=== PATIENT | male | born 1940 | race Caucasian/White ===

== ENCOUNTER → 2017-08-07 | Outpatient (CLI) | payer OTHER | END | disposition home or self-care (01) | LOC: RAH 12:43 | PROVIDERS: ATTEND Internal Medicine Cardiovascular Disease | DX: G31.9 Degenerative disease of nervous system, unspecified (principal); R27.0 Ataxia, unspecified; R29.6 Repeated falls | CPT/HCPCS: 70450 ==

== ENCOUNTER 2018-02-06 08:45 | Day surgery (SDC) | payer OTHER ==
[2018-02-03 13:22] VITALS: BP 140/63
[2018-02-03 13:26] LABS: BASOPHILS % (AUTO) 0.7 % (0.0-5.0); EOSINOPHILS % (AUTO) 4.3 % (0.0-8.0); HEMATOCRIT 41.6 % (42-54); MEAN CORPUSCULAR HEMOGLOBIN 30.5 pg (27.0-33.0); MEAN CORPUSCULAR HGB CONC 33.4 g/dL (32.0-36.0); MEAN CORPUSCULAR VOLUME 91.2 fL (79-99); MONOCYTES % (AUTO) 7.2 % (3.0-13.0); NEUTROPHILS % (AUTO) 72.8 % (40.0-77.0); PLATELET COUNT (AUTO) 254 K/uL (130-400); RED BLOOD CELL COUNT(AUTO) 4.56 MIL/uL (4.50-6.20); RED CELL DISTRIBUTION WIDTH 13.8 % (11.0-15.5); WHITE BLOOD COUNT (AUTO) 8.3 K/uL (4.8-10.8)
[2018-02-03 13:28] LABS: APPEARANCE,URINE CLEAR (CLEAR); BILIRUBIN,URINE NEGATIVE (NEGATIVE); COLOR,URINE YELLOW (YELLOW); GLUCOSE, URINE (UA) NEGATIVE (NEGATIVE); KETONES,URINE NEGATIVE (NEGATIVE); LEUKOCYTE ESTERASE ,URINE NEGATIVE (NEGATIVE); NITRATE,URINE NEGATIVE (NEGATIVE); OCCULT BLOOD,URINE MODERATE (NEGATIVE); PH,URINE 5.5 (5.0-8.0); PROTEIN,URINE NEGATIVE (NEGATIVE); UROBILINOGEN,URINE 0.2 mg/dL (0.2-1.0)
[2018-02-03 13:34] LABS: BACTERIA,URINE Rare /HPF (None Seen); RBC,URINE 0-1 /HPF (0-1); SQUAMOUS EPITHELIAL CELL,UR Rare /HPF (0-2)
[2018-02-03 13:35] LABS: CALCIUM OXALATE CRYSTALS,UR Few /LPF (None Seen)
[2018-02-03 13:36] LABS: POTASSIUM 4.2 mmol/L (3.5-5.1)
[~2018-02-06] VITALS: Ht 182.9 cm; Wt 108.9 kg
[2018-02-06] VITALS (14 sets, daily range): BP systolic 133–154; BP diastolic 64–96
[~2018-02-06 08:45] MED LIST: ACEB200 PO; AMLO2.5T3 PO; AMOX-429 PO; ATOR10TA69 PO; FENO145T37 PO; GLYPIZIDE PO; JANUMET PO; LOSA25TA16 PO; RIVA20TA PO; TAMS-1 PO
[2018-02-06] MEDS ORDERED: SODIUM CHLORIDE 0.9% 1000ML 1,000 ML IV ONE (09:42)
[2018-02-06] MEDS: LEVOFLOXACIN 500 MG/D5W 100 ML 100 ML IV SCH ×2 (10:49→14:05)
[2018-02-06] MEDS ORDERED: GENTAMICIN 80 MG/NS 100 ML PB 100 ML IV ONE (10:59)
[2018-02-06] MEDS ORDERED: LIDOCAINE PF 2% 5ML ABBOJECT ONE (14:00)
[2018-02-06] MEDS ORDERED: DEXAMETHASONE SOD PHOSPHATE 10MG/ML 1ML VIAL ONE ×2 (14:00→14:04)
[2018-02-06] MEDS ORDERED: PROPOFOL 10 MG/ML 20ML VIAL IV ONE ×2 (14:01→14:33)
[2018-02-06] MEDS ORDERED: MIDAZOLAM HCL 1 MG/ML 2ML VIAL ONE (14:01)
[2018-02-06] MEDS ORDERED: GLYCOPYRROLATE 1 MG/5 ML SYRINGE ONE (14:01)
[2018-02-06] MEDS ORDERED: ONDANSETRON HCL 4 MG/2 ML VIAL ONE (14:01)
[2018-02-06] MEDS ORDERED: NEOSTIGMINE 5MG/5ML SYR IV ONE (14:01)
[2018-02-06] MEDS ORDERED: FENTANYL CITRATE PF 50 MCG/1 ML 2ML VIAL ONE (14:02)
[2018-02-06] MEDS ORDERED: ROCURONIUM BROMIDE 10MG/1ML 5ML VL ONE (14:03)
[2018-02-06] MEDS ORDERED: EPHEDRINE SULFATE 50 MG/ML AMPULE ONE (14:55)
[2018-02-06] MEDS ORDERED: MEPERIDINE-PF 25 MG/ML SYG ONE (15:17)
== END 2018-02-06 17:15 | disposition home or self-care (01) ==
LOC: DAH 08:45
PROVIDERS: ATTEND Urology
DX: N40.0 Benign prostatic hyperplasia without lower urinary tract symptoms (principal); E11.9 Type 2 diabetes mellitus without complications; I25.10 Atherosclerotic heart disease of native coronary artery without angina pectoris; Z98.890 Other specified postprocedural states; Z79.899 Other long term (current) drug therapy; R06.02 Shortness of breath; I48.91 Unspecified atrial fibrillation; I44.7 Left bundle-branch block, unspecified
CPT/HCPCS: 36415; 55700; 76942; 80048; 81001; 82948 ×2; 85025; 87088; 88305; 93005; A4215; A4358; A4510; J1100 ×2; J1580; J1956; J2001; J2175; J2250; J2405; J2704 ×2; J2710; J3010; J3490 ×3; J7030 ×2

== ENCOUNTER 2018-02-07 15:38 | Emergency (ER) | payer OTHER ==
[2018-02-07] MEDS ORDERED: LIDOCAINE HCL 2% JELLY 5 ML ONE (16:02)
[2018-02-07 16:28] LABS: APPEARANCE,URINE Clear (CLEAR); BILIRUBIN,URINE Negative (NEGATIVE); COLOR,URINE Dark Yellow (YELLOW); GLUCOSE, URINE (UA) >=1000 mg/dL (NEGATIVE); KETONES,URINE Negative (NEGATIVE); LEUKOCYTE ESTERASE ,URINE Negative (NEGATIVE); NITRATE,URINE Negative (NEGATIVE); OCCULT BLOOD,URINE Small (NEGATIVE); PH,URINE 5.5 (5.0-8.0); PROTEIN,URINE Negative (NEGATIVE); UROBILINOGEN,URINE 0.2 mg/dL (0.2-1.0)
[2018-02-07] MEDS ORDERED: TRAMADOL HCL 50 MG TABLET ONE (16:35)
[2018-02-07 16:46] LABS: BACTERIA,URINE Rare /HPF (None Seen); RBC,URINE 0-1 /HPF (0-1); SQUAMOUS EPITHELIAL CELL,UR 0-2 /HPF (0-2); WBC,URINE 0-1 /HPF (0-1)
== END 2018-02-07 17:39 | disposition home or self-care (01) ==
LOC: EDH 15:38
DX: R33.9 Retention of urine, unspecified (principal)
CPT/HCPCS: 51702; 81001